=== PATIENT | female | born 1960 | race Caucasian/White ===

== ENCOUNTER 2018-04-04 23:10 | Inpatient (IN) | payer OTHER ==
[2018-04-05 01:40] LABS: ADD UMIC NO; UR ASCORBIC ACID NEGATIVE (NEGATIVE); UR BILIRUBIN (Dip) NEGATIVE (NEGATIVE); UR BLOOD (Dip) NEGATIVE (NEGATIVE); UR CLARITY CLEAR (CLEAR); UR COLOR STRAW (YELLOW); UR GLUCOSE (Dip) NEGATIVE (NEGATIVE); UR KETONES (Dip) NEGATIVE (NEGATIVE); UR LEUKOCYTE ESTERASE (Dip) NEGATIVE Leu/ul (NEGATIVE); UR NITRITE (Dip) NEGATIVE (NEGATIVE); UR SPECIFIC GRAVITY (Dip) 1.005 (1.003-1.030); UR TOTAL PROTEIN (Dip) NEGATIVE (NEGATIVE); UR UROBILINOGEN (Dip) NEGATIVE (NEGATIVE)
[2018-04-05] MEDS ORDERED: NALOXONE (0.4 MG/ML) INJ IV ×2 (02:30→02:57)
[2018-04-05] MEDS ORDERED: LORAZEPAM 2 MG INJ IV ×2 (02:30→02:57)
[2018-04-05] MEDS ORDERED: CEPASTAT LOZENGE MT ×2 (02:30→02:57)
[2018-04-05] MEDS ORDERED: NITROGLYCERIN (SL) 0.4 MG TAB SL ×2 (02:30→02:57)
[2018-04-05] MEDS ORDERED: DIAZEPAM 5 MG TAB PO (02:30)
[2018-04-05] MEDS ORDERED: oxyCODONE 5 MG TAB PO (02:30)
[2018-04-05] MEDS ORDERED: DIPHENHYDRAMINE 50 MG CAP PO ×2 (02:30→02:57)
[2018-04-05] MEDS ORDERED: ACETAMINOPHEN 325 MG TAB PO ×2 (02:30→02:57)
[2018-04-05] MEDS ORDERED: ZOLPIDEM 5 MG TAB PO ×2 (02:30→02:57)
[2018-04-05] MEDS ORDERED: ONDANSETRON 4 MG INJ IV ×2 (02:30→02:57)
[2018-04-05] MEDS ORDERED: ALBUTEROL/IPRATROPIUM (NEB) 3 ML AMP HHN ×2 (02:57→05:00)
[2018-04-05] MEDS ORDERED: MAGNESIUM HYDROXIDE 30ML CUP PO (02:57)
[2018-04-05] MEDS ORDERED: NA PHOSPHATE/BIPHOS 133 ML ENEMA PR ×2 (02:57→03:00)
[2018-04-05] MEDS: DIAZEPAM 5 MG TAB PO ×2 (03:06→15:51)
[2018-04-05] MEDS: oxyCODONE 5 MG TAB PO ×5 (05:26→22:39)
[2018-04-05] MEDS: PANTOPRAZOLE (EC) 40 MG TAB PO (05:26)
[2018-04-05] MEDS: BISACODYL 10 MG SUPP PR (05:26)
[2018-04-05] MEDS ORDERED: PANTOPRAZOLE (EC) 40 MG TAB PO (06:00)
[2018-04-05] MEDS: BACLOFEN 10 MG TAB PO ×2 (06:16→21:10)
[2018-04-05 07:53] LABS: ADD MAN DIFF? NO
[2018-04-05 07:58] LABS: BASOPHIL # 0.1 10^3/ul (0.0-0.1); BASOPHILS % 0.6 % (0.0-2.0); EOSINOPHILS # 0.2 10^3/ul (0.0-0.5); EOSINOPHILS % 2.3 % (0.0-7.0); HEMATOCRIT 28.3 % (37.0-47.0); HEMOGLOBIN 9.8 g/dl (12.0-16.0); LYMPHOCYTES # 1.2 10^3/ul (0.8-2.9); LYMPHOCYTES % 15.3 % (15.0-51.0); MEAN CORPUSCULAR HEMOGLOBIN 32.5 pg (29.0-33.0); MEAN CORPUSCULAR HGB CONC 34.6 g/dl (32.0-37.0); MEAN CORPUSCULAR VOLUME 93.7 fl (82.0-101.0); MEAN PLATELET VOLUME 10.8 fl (7.4-10.4); MONOCYTE # 0.8 10^3/ul (0.3-0.9); MONOCYTES % 10.4 % (0.0-11.0); NEUTROPHIL # 5.7 10^3/ul (1.6-7.5); NEUTROPHILS % 70.5 % (39.0-77.0); PLATELET COUNT 251 10^3/UL (140-415); RED BLOOD COUNT 3.02 10^6/ul (4.20-5.40); RED CELL DISTRIBUTION WIDTH 12.9 % (11.5-14.5)
[2018-04-05 07:58] LABS: WHITE BLOOD COUNT 8.1 10^3/ul (4.8-10.8)
[2018-04-05] MEDS: HEPARIN 5,000 UNIT/0.5 ML VIAL SC ×2 (08:06→21:13)
[2018-04-05] MEDS: ASPIRIN (EC) 81 MG TAB PO (08:07)
[2018-04-05] MEDS: LEVETIRACETAM 500 MG TAB PO ×2 (08:07→21:09)
[2018-04-05 08:17] LABS: INR 1.04; PROTIME 13.7 Sec (11.9-14.9); PT RATIO 1.1
[2018-04-05 08:22] LABS: ALANINE AMINOTRANSFERASE 30 IU/L (13-69); ALBUMIN 2.7 g/dl (3.3-4.9); ALBUMIN/GLOBULIN RATIO 0.87; ALKALINE PHOSPHATASE 79 IU/L (42-121); ANION GAP 6 (8-16); ASPARTATE AMINO TRANSFERASE 25 IU/L (15-46); BILIRUBIN,INDIRECT 0.3 mg/dl (0-1.1); BILIRUBIN,TOTAL 0.3 mg/dl (0.2-1.3); BLOOD UREA NITROGEN 6 mg/dl (7-20); CALCIUM 8.7 mg/dl (8.4-10.2); CARBON DIOXIDE 31 mmol/L (21-31); CHLORIDE 103 mmol/L (97-110); CREATININE 0.61 mg/dl (0.44-1.00); GLUCOSE 96 mg/dl (70-220); SODIUM 136 mmol/L (135-144); TOTAL PROTEIN 5.8 g/dl (6.1-8.1)
[2018-04-05] MEDS ORDERED: BACLOFEN 10 MG TAB PO (09:00)
[2018-04-05] MEDS ORDERED: HEPARIN 5,000 UNIT/0.5 ML VIAL SC (09:00)
[2018-04-05] MEDS ORDERED: ASPIRIN (EC) 81 MG TAB PO (09:00)
[2018-04-05] MEDS ORDERED: LEVETIRACETAM 500 MG TAB PO (09:00)
[2018-04-05] MEDS: SENNA TAB PO (21:00)
[2018-04-05] MEDS ORDERED: AMITRIPTYLINE 25 MG TAB PO ×2 (21:00)
[2018-04-05] MEDS ORDERED: ATORVASTATIN 10 MG TAB PO (21:00)
[2018-04-05] MEDS: ATORVASTATIN 10 MG TAB PO (21:10)
[2018-04-05] MEDS ORDERED: AMITRIPTYLINE 50 MG TAB PO (22:00)
[2018-04-05] MEDS: AMITRIPTYLINE 25 MG TAB PO (22:15)
[2018-04-06] MEDS: PANTOPRAZOLE (EC) 40 MG TAB PO (05:16)
[2018-04-06] MEDS: oxyCODONE 5 MG TAB PO ×5 (05:16→21:50)
[2018-04-06] MEDS: DIAZEPAM 5 MG TAB PO ×4 (05:21→21:50)
[2018-04-06] MEDS: BACLOFEN 10 MG TAB PO ×3 (08:58→20:21)
[2018-04-06] MEDS: LEVETIRACETAM 500 MG TAB PO ×2 (08:59→20:21)
[2018-04-06] MEDS: ASPIRIN (EC) 81 MG TAB PO (09:00)
[2018-04-06] MEDS: HEPARIN 5,000 UNIT/0.5 ML VIAL SC (09:01)
[2018-04-06] MEDS ORDERED: HEPARIN 5,000 UNIT/0.5 ML VIAL (20:13)
[2018-04-06] MEDS: SENNA TAB PO (20:21)
[2018-04-06] MEDS: ATORVASTATIN 10 MG TAB PO (20:21)
[2018-04-06] MEDS: AMITRIPTYLINE 25 MG TAB PO (20:21)
[2018-04-06] MEDS: HEPARIN SODIUM 5,000 UNIT/ML VIAL SC (20:25)
[2018-04-07] MEDS: oxyCODONE 5 MG TAB PO ×5 (02:04→19:56)
[2018-04-07] MEDS: PANTOPRAZOLE (EC) 40 MG TAB PO (06:50)
[2018-04-07] MEDS ORDERED: HEPARIN 5,000 UNIT/0.5 ML VIAL ×2 (09:07→19:54)
[2018-04-07] MEDS: LEVETIRACETAM 500 MG TAB PO ×2 (09:25→19:51)
[2018-04-07] MEDS: BACLOFEN 10 MG TAB PO ×3 (09:26→19:51)
[2018-04-07] MEDS: ASPIRIN (EC) 81 MG TAB PO (09:26)
[2018-04-07] MEDS: HEPARIN SODIUM 5,000 UNIT/ML VIAL SC ×2 (09:28→20:08)
[2018-04-07] MEDS: DIAZEPAM 5 MG TAB PO (13:00)
[2018-04-07] MEDS: IBUPROFEN 200 MG TAB PO (14:36)
[2018-04-07] MEDS: DOCUSATE SODIUM 100 MG CAP PO (19:51)
[2018-04-07] MEDS: AMITRIPTYLINE 25 MG TAB PO (19:52)
[2018-04-07] MEDS: ATORVASTATIN 10 MG TAB PO (19:52)
[2018-04-07] MEDS: SENNA TAB PO (19:58)
[2018-04-08] MEDS: oxyCODONE 5 MG TAB PO ×5 (01:53→20:17)
[2018-04-08] MEDS: PANTOPRAZOLE (EC) 40 MG TAB PO (06:12)
[2018-04-08] MEDS: DIAZEPAM 5 MG TAB PO ×2 (07:14→15:28)
[2018-04-08] MEDS ORDERED: HEPARIN 5,000 UNIT/0.5 ML VIAL (08:11)
[2018-04-08] MEDS: ASPIRIN (EC) 81 MG TAB PO (08:48)
[2018-04-08] MEDS: LEVETIRACETAM 500 MG TAB PO ×2 (08:48→20:14)
[2018-04-08] MEDS: BACLOFEN 10 MG TAB PO ×3 (08:49→20:15)
[2018-04-08] MEDS: HEPARIN SODIUM 5,000 UNIT/ML VIAL SC (08:55)
[2018-04-08] MEDS: LACTULOSE 30ML CUP PO (15:28)
[2018-04-08] MEDS: WARFARIN 7.5 MG TAB PO (16:09)
[2018-04-08] MEDS: ATORVASTATIN 10 MG TAB PO (20:14)
[2018-04-08] MEDS: SENNA TAB PO (20:15)
[2018-04-08] MEDS: AMITRIPTYLINE 25 MG TAB PO (20:15)
[2018-04-08] MEDS: DOCUSATE SODIUM 100 MG CAP PO (20:15)
[2018-04-09] MEDS: oxyCODONE 5 MG TAB PO ×5 (03:57→20:05)
[2018-04-09] MEDS: DIAZEPAM 5 MG TAB PO ×3 (03:58→20:04)
[2018-04-09] MEDS: PANTOPRAZOLE (EC) 40 MG TAB PO (05:56)
[2018-04-09] MEDS: LEVETIRACETAM 500 MG TAB PO ×2 (08:08→20:05)
[2018-04-09] MEDS: DOCUSATE SODIUM 100 MG CAP PO ×2 (08:08→20:03)
[2018-04-09] MEDS: BACLOFEN 10 MG TAB PO ×3 (08:09→20:04)
[2018-04-09] MEDS: ASPIRIN (EC) 81 MG TAB PO (08:09)
[2018-04-09] MEDS: WARFARIN 7.5 MG TAB PO (19:06)
[2018-04-09] MEDS: SENNA TAB PO (20:03)
[2018-04-09] MEDS: AMITRIPTYLINE 25 MG TAB PO (20:05)
[2018-04-09] MEDS: ATORVASTATIN 10 MG TAB PO (20:05)
[2018-04-10] MEDS: oxyCODONE 5 MG TAB PO ×4 (02:56→20:09)
[2018-04-10] MEDS: PANTOPRAZOLE (EC) 40 MG TAB PO (06:31)
[2018-04-10] MEDS: DIAZEPAM 5 MG TAB PO ×3 (06:35→16:04)
[2018-04-10] MEDS: ASPIRIN (EC) 81 MG TAB PO (08:23)
[2018-04-10] MEDS: LEVETIRACETAM 500 MG TAB PO ×2 (08:23→20:10)
[2018-04-10] MEDS: BACLOFEN 10 MG TAB PO ×3 (08:23→20:10)
[2018-04-10] MEDS: DOCUSATE SODIUM 100 MG CAP PO ×2 (08:23→20:10)
[2018-04-10 08:31] LABS: INR 1.22; PROTIME 15.6 Sec (11.9-14.9); PT RATIO 1.2
[2018-04-10] MEDS: IBUPROFEN 200 MG TAB PO ×2 (16:01→23:27)
[2018-04-10] MEDS: WARFARIN 7.5 MG TAB PO (18:01)
[2018-04-10] MEDS: AMITRIPTYLINE 25 MG TAB PO (20:10)
[2018-04-10] MEDS: ATORVASTATIN 10 MG TAB PO (20:10)
[2018-04-10] MEDS: SENNA TAB PO (20:10)
[2018-04-11] MEDS: DIAZEPAM 5 MG TAB PO ×3 (00:01→18:42)
[2018-04-11] MEDS: oxyCODONE 5 MG TAB PO ×5 (00:47→20:02)
[2018-04-11] MEDS: PANTOPRAZOLE (EC) 40 MG TAB PO (06:27)
[2018-04-11] MEDS: LEVETIRACETAM 500 MG TAB PO ×2 (08:50→20:02)
[2018-04-11] MEDS: DOCUSATE SODIUM 100 MG CAP PO ×2 (08:50→20:02)
[2018-04-11] MEDS: ASPIRIN (EC) 81 MG TAB PO (08:50)
[2018-04-11] MEDS: BACLOFEN 10 MG TAB PO ×3 (08:50→20:02)
[2018-04-11] MEDS: WARFARIN 7.5 MG TAB PO (18:41)
[2018-04-11] MEDS: SENNA TAB PO (20:02)
[2018-04-11] MEDS: AMITRIPTYLINE 25 MG TAB PO (20:02)
[2018-04-11] MEDS: ATORVASTATIN 10 MG TAB PO (20:03)
[2018-04-12] MEDS: oxyCODONE 5 MG TAB PO ×4 (01:57→14:21)
[2018-04-12] MEDS: DIAZEPAM 5 MG TAB PO ×2 (02:33→11:06)
[2018-04-12] MEDS: PANTOPRAZOLE (EC) 40 MG TAB PO (06:02)
[2018-04-12] MEDS: BACLOFEN 10 MG TAB PO ×2 (08:16→12:48)
[2018-04-12] MEDS: DOCUSATE SODIUM 100 MG CAP PO (08:16)
[2018-04-12] MEDS: LEVETIRACETAM 500 MG TAB PO (08:16)
[2018-04-12] MEDS: ASPIRIN (EC) 81 MG TAB PO (08:16)
== END 2018-04-12 15:40 | disposition home health service (06) | DRG 559 ==
LOC: VRC 23:10
PROC: F07Z5ZZ Bed Mobility Treatment (ICD-10-PCS; principal; 2018-04-04)
PROC: F08Z2ZZ Grooming/Personal Hygiene Treatment (ICD-10-PCS; 2018-04-04)
DX: S22.088D Other fracture of T11-T12 vertebra, subsequent encounter for fracture with routine healing (principal); G92 Toxic encephalopathy; G40.509 Epileptic seizures related to external causes, not intractable, without status epilepticus; G89.11 Acute pain due to trauma; Z95.2 Presence of prosthetic heart valve; Z79.82 Long term (current) use of aspirin; D64.9 Anemia, unspecified; R51 Headache
CPT/HCPCS: 80053; 81003; 85025; 85610; 87081; 87086; 92523; 97110; 97116; 97163; 97167; 97530; 97535